=== PATIENT | male | born 1995 | race Hispanic/Latino ===

== ENCOUNTER 2021-09-27 21:58 | Emergency (ER) | payer OTHER ==
[~2021-09-27] VITALS: Ht 177.8 cm; Wt 83.9 kg
[2021-09-27] MEDS ORDERED: DIPHTH/TETANUS/ACEL. PERTUSSIS 0.5 ML SYR IM ONE (22:15)
[2021-09-28] MEDS ORDERED: TETANUS/DIPHTHERIA TOX ADULT 0.5 ML SYR ONE (00:04)
[2021-09-28] MEDS ORDERED: CEPHALEXIN500 MG PO (00:29)
[2021-09-28] MEDS ORDERED: IBUPROFEN 600 MG TAB ONE (00:44)
== END 2021-09-28 01:05 | disposition home or self-care (01) ==
LOC: FSED 22:05
DX: S61.215A Laceration without foreign body of left ring finger without damage to nail, initial encounter (principal); S61.217A Laceration without foreign body of left little finger without damage to nail, initial encounter; W25.XXXA Contact with sharp glass, initial encounter; Y92.89 Other specified places as the place of occurrence of the external cause
CPT/HCPCS: 90471; 90714; 99283